=== PATIENT | female | born 1960 | race Caucasian/White ===

== ENCOUNTER 2018-08-02 18:01 | Emergency (ER) | payer MEDICARE, BC ==
[~2018-08-02] VITALS: Ht 157.5 cm; Wt 92.0 kg
[~2018-08-02 18:01] MED LIST: ALBU18HF INHALATION; CAPT25TA3 PO; CELE200C PO; FLUT16SP17 NASAL; IBUP-1542 PO; OMEP20CA16 PO; RANI150T5 PO
[2018-08-02 18:45] VITALS: Ht 157.5 cm; Wt 92.0 kg
[2018-08-02] MEDS ORDERED: CEPH-443 PO (20:14)
[2018-08-02] MEDS ORDERED: IBUP-1542 PO (20:14)
--- NOTE | 2018-08-02 20:20 | ERD ---
ER Documentation Chief Complaint Chief Complaint dysuria/hematuria/pelvic pain x 3 days HPI 57-year-old female presents with dysuria, suprapubic pain and low back pain worsening over the last week. Denies fevers, vomiting, right or left localized abdominal pain or upper abdominal pain. ROS All systems reviewed and are negative except as per history of present illness. Medications Home Meds Active Scripts Ibuprofen* (Motrin*) 600 Mg Tab, 600 MG PO Q6, #20 TAB Prov:DAWN ALEXANDER MD 08/02/18 Cephalexin* (Keflex*) 500 Mg Capsule, 500 MG PO QID for 7 Days, CAP Prov:DAWN ALEXANDER MD 08/02/18 Ibuprofen* (Motrin*) 600 Mg Tab, 600 MG PO Q8 PRN for PAIN AND/OR INFLAMMATION, #30 TAB Prov:HOLLY BRAGA MD 04/07/18 Reported Medications Albuterol Sulfate* (Ventolin HFA*) 18 Gm Hfa.aer.ad, 2 PUFF INHALATION Q6H, #1 INHALER 04/07/18 Fluticasone Propionate* (Fluticasone Propionate* Nasal) 50 Mcg/Mershon - 16 Gm Mershon.susp, 1 SPRAY NASAL DAILY, #1 BOTTLE TO EACH NOSTRIL 04/07/18 Ranitidine Hcl* (Ranitidine Hcl*) 150 Mg Tablet, 150 MG PO HS, #30 TAB 04/07/18 Omeprazole* (Omeprazole*) 20 Mg Capsule.dr, 20 MG PO DAILY, #30 CAP 04/07/18 Captopril* (Captopril*) 25 Mg Tablet, 25 MG PO BID, #60 TAB 04/07/18 Celecoxib* (Celebrex*) 200 Mg Capsule, 200 MG PO DAILY, CAP 04/07/18 Allergies Allergies: Coded Allergies: No Known Allergy (Unverified , 04/07/18) PMhx/Soc History of Surgery: Yes (APPENDECTOMY, LEFT SHOULDER ) Anesthesia Reaction: No Hx Neurological Disorder: No Hx Respiratory Disorders: No Hx Cardiac Disorders: Yes (HTN) Hx Psychiatric Problems: No Hx Miscellaneous Medical Probl: No Hx Alcohol Use: No Hx Substance Use: No Hx Tobacco Use: No Smoking Status: Never smoker FmHx Family History: No diabetes, No coronary disease, No other Physical Exam Vitals Vital Signs Date Temp Pulse Resp B/P (MAP) Pulse Ox O2 O2 Flow FiO2 Time Delivery Rate 08/02/18 97.2 103 18 149/84 97 18:45 (105) Physical Exam Const: No acute distress Head: Atraumatic Eyes: Normal Conjunctiva ENT: Normal External Ears, Nose and Mouth. Neck: Full range of motion. No meningismus. Resp: Clear to auscultation bilaterally Cardio: Regular rate and rhythm, no murmurs Abd: Soft, suprapubic tenderness. No tenderness McBurney's point no Moulton sign. No rebound or masses. Non distended. Normal bowel sounds and no peritoneal signs. Skin: No petechiae or rashes Back: No midline or flank tenderness Ext: No cyanosis, or edema Neur: Awake and alert Psych: Normal Mood and Affect Results 24 hrs Laboratory Tests Test 08/02/18 19:50 Urine Color YELLOW Urine Clarity CLOUDY Urine pH 6.0 Urine Specific Fri[place] 1.021 Urine Ketones TRACE mg/dL Urine Nitrite NEGATIVE mg/dL Urine Bilirubin NEGATIVE mg/dL Urine Urobilinogen NEGATIVE mg/dL Urine Leukocyte Esterase 3+ Yancy/ul Urine Microscopic RBC > 182 /HPF Urine Microscopic WBC > 182 /HPF Urine Squamous Epithelial Cells MODERATE /HPF Urine Bacteria FEW /HPF Urine Mucus FEW /HPF Urine Yeast (Budding) FEW /HPF Urine Hemoglobin 3+ mg/dL Urine Glucose NEGATIVE mg/dL Urine Total Protein 2+ mg/dl Current Medications Medications Dose Sig/Amie Start Time Status Last (Trade) Ordered Route PRN Stop Time Admin Dose Reason Admin Ibuprofen 600 mg ONCE ONCE 08/02/18 (Motrin) PO 20:30 08/02/18 20:31 Ceftriaxone 1 gm ONCE ONCE 08/02/18 Sodium IM 20:30 08/02/18 (Rocephin) 20:31 Procedures/MDM Shows leukocyte esterase, white blood cells and red blood cells. Patient was given ibuprofen and Rocephin 1 g IM for duration of symptoms and low back pain. Patient presents with dysuria, signs of cystitis low back pain. She has no flank tenderness, fevers, vomiting, localized abdominal pain to suggest pyelonephritis or sepsis. Current signs or symptoms do not suggest surgical abdomen, appendicitis, hepatobiliary disease, and patient is well-appearing. Will treat with ibuprofen, Keflex, instructions for fluids, recommendations for primary care follow-up and return precautions for fevers, vomiting, abdominal pain is worsening, new worsening symptoms. The patient was stable with no new complaints during the ER course. Clinically, there is no current evidence to suggest meningitis, sepsis, acute abdomen, pneumonia, stroke, acute coronary syndrome, pulmonary embolism, aortic dissection or any other emergent condition appearing to require further evaluation or hospitalization. Patient counseled regarding my diagnostic impression and care plan. Prior to discharge all questions answered. Pt agrees with treatment plan and understands strict return precautions. Pt is instructed to follow up with primary care provider within 24- 48 hours. Precautionary instructions provided including instructions to return to the ER if not improving or for any worsening or changing symptoms or concerns. Disclaimer: Inadvertent spelling and grammatical errors are likely due to EHR/dictation software use and do not reflect on the overall quality of patient care. Also, please note that the electronic time recorded on this note does not necessarily reflect the actual time of the patient encounter. Departure Diagnosis: Primary Impression: UTI (urinary tract infection) Urinary tract infection type: acute cystitis Hematuria presence: without hematuria Qualified Codes: N30.00 - Acute cystitis without hematuria Condition: Stable Patient Instructions: Understanding Urinary Tract Infections (UTIs) Additional Instructions: orina tiene infeccion. karson much agua. Cheque otro vez con singh doctor primario en el proximo talavera or regresa para mas o nueva simptomas - fienre, vomito , nueva simptomas. DAWN ALEXANDER MD Aug 02, 2018 20:20
[2018-08-02] MEDS ORDERED: IBUPROFEN 600 MG TAB PO ONE (20:30)
[2018-08-02] MEDS ORDERED: CEFTRIAXONE 1 GM INJ IM ONE (20:30)
[2018-08-02 21:29] VITALS: BP 120/73; PULSE 82; RESP 20
== END 2018-08-02 21:29 | disposition home or self-care (01) ==
LOC: FTE 18:01
DX: N30.00 Acute cystitis without hematuria (principal); I10 Essential (primary) hypertension
CPT/HCPCS: 81001; 96372; 99284; J0696

== ENCOUNTER 2018-10-17 16:24 | Emergency (ER) | payer MEDICARE, BC ==
[~2018-10-17] VITALS: Ht 152.4 cm; Wt 90.5 kg
[~2018-10-17 16:24] MED LIST changes: +CEPH-443 PO; +TRAM50TA2 PO
[2018-10-17 16:31] VITALS: Ht 152.4 cm; Wt 90.5 kg
[2018-10-17 20:14] VITALS: BP 127/68; PULSE 79; RESP 17
== END 2018-10-17 20:14 | disposition home or self-care (01) ==
LOC: FTE 16:24
DX: M54.9 Dorsalgia, unspecified (principal); I10 Essential (primary) hypertension
CPT/HCPCS: 96372; 99284; J1885